=== PATIENT | female | born 1950 | race Hispanic/Latino ===

== ENCOUNTER 2021-06-09 12:36 | Emergency (ER) | payer OTHER ==
--- NOTE | 2021-06-09 13:28 | RAD REPORT ---
EXAM DESCRIPTION: RAD - Chest Single View - 06/09/2021 1:20 pm CLINICAL HISTORY: CHEST PAIN Chest pain. COMPARISON: CHEST PA AND LAT 2 VIEW dated 10/19/2012; CHEST SINGLE VIEW dated 10/19/2011; CHEST SINGLE VIEW dated 10/18/2011; CHEST SINGLE VIEW dated 10/14/2008 FINDINGS: Portable technique limits examination quality. The lungs are grossly clear. The heart is normal in size. No displaced fractures. IMPRESSION: No acute intrathoracic process suspected.
[2021-06-09 14:00] LABS: Absolute Lymphocytes (CBC) 2.3 K/uL (0.7-4.9); Hematocrit 46.8 % (36.0-45.0); Lymphocytes % 30.4 % (15.3-44.8); MPV 8.7 fL (7.6-11.3); RBC Red Blood Cell Count 5.26 M/uL (3.86-4.86)
[2021-06-09 14:12] LABS: Albumin 3.8 g/dL (3.4-5.0); Bilirubin Direct 0.1 mg/dL (0-0.2); Bilirubin Total 0.4 mg/dL (0.2-1.0); Potassium 3.5 mmol/L (3.5-5.1); Protein, Total 7.6 g/dL (6.4-8.2); Troponin High Sensitivity 4.8 pg/mL (<58.9)
[2021-06-09 14:31] LABS: Protime INR 0.93
[2021-06-09] MEDS ORDERED: NA CHLORIDE 0.9% 500 ML ONE (16:01)
--- NOTE | 2021-06-09 18:14 | ER ---
Nurse's Notes [facility] Name: Vesna Montes Age: 71 yrs Sex: Female : 1950 Arrival Date: 06/09/2021 Time: 12:42 Bed 4 Private MD: Diagnosis: Chest pain, unspecified Presentation: 06/09 12:53 Chief complaint: Patient states: My blood pressure and sugar have been up and my left jg9 arm feels weak. Patient seen at [facility] in [place] this morning and advised to come to ED. Coronavirus screen: Vaccine status: Patient reports receiving the 2nd dose of the covid vaccine. Pfizer booster. Ebola Screen: Patient negative for fever greater than or equal to 101.5 degrees Fahrenheit, and additional compatible Ebola Virus Disease symptoms Patient denies exposure to infectious person. Patient denies travel to an Ebola-affected area in the 21 days before illness onset. Initial Sepsis Screen: Does the patient meet any 2 criteria? No. Patient's initial sepsis screen is negative. Does the patient have a suspected source of infection? No. Patient's initial sepsis screen is negative. Risk Assessment: Do you want to hurt yourself or someone else? Patient reports no desire to harm self or others. Onset of symptoms is unknown. 12:53 Method Of Arrival: Ambulatory 9 12:53 Acuity: KEREN 3 jg9 Triage Assessment: 12:55 General: Appears in no apparent distress. Behavior is calm, cooperative. Pain: Denies jg9 pain. 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 - Social history:: Smoking status: Patient denies any tobacco usage or history of. Screenin:56 Abuse screen: Denies threats or abuse. Denies injuries from another. Nutritional jg9 screening: No deficits noted. Tuberculosis screening: No symptoms or risk factors identified. Fall Risk Fall in past 12 months (25 points). Assessment: 13:16 Reassessment: No changes from previously documented assessment. Patient and/or family ll1 updated on plan of care and expected duration. Pain level reassessed. Patient is alert, oriented x 3, equal unlabored respirations, skin warm/dry/pink. 14:09 Reassessment: No changes from previously documented assessment. Patient and/or family ll1 updated on plan of care and expected duration. Pain level reassessed. Patient is alert, oriented x 3, equal unlabored respirations, skin warm/dry/pink. Vital Signs: 12:53 BP 189 / 84; Pulse 81; Resp 18 S; Temp 96.9(TE); Pulse Ox 100% on R/A; Weight 53.98 kg jg9 (R); Height 4 ft. 10 in. (147.32 cm) (R); 13:10 BP 181 / 75; Pulse 73; Resp 17; Pulse Ox 100% on R/A; ll1 13:39 BP 167 / 70; Pulse 73; Resp 16; Temp 97.0; Pulse Ox 100% ; ll1 16:06 BP 145 / 67; Pulse 71; Resp 18; Pulse Ox 100% ; ld1 17:40 BP 177 / 60; Pulse 67; Resp 14; Pulse Ox 100% on R/A; ld1 12:53 Body Mass Index 24.87 (53.98 kg, 147.32 cm) j9 ED Course: 12:42 Patient arrived in ED. mr 12:55 Triage completed. jg9 12:56 Arm band placed on left wrist. jg9 12:57 Bonifacio Dickson NP is PHCP. pm1 12:57 Michelle Bourgeois MD is Attending Physician. pm1 12:57 Audrey Schmitt, LETTY is Primary Nurse. ld1 13:01 Parag Garcia, LETTY is Primary Nurse. ll1 13:01 Patient placed in an exam room, on a stretcher. ll1 13:10 Patient has correct armband on for positive identification. Bed in low position. Call ll1 light in reach. Side rails up X 1. Cardiac monitoring not applicable on this patient. 13:20 XRAY Chest (1 view) In Process Unspecified. EDMS 13:40 Inserted saline lock: 20 gauge in right antecubital area, using aseptic technique. ll1 Blood collected. 18:24 No provider procedures requiring assistance completed. IV discontinued, intact, ld1 bleeding controlled, No redness/swelling at site. Pressure dressing applied. Administered Medications: 16:05 Drug: NS 0.9% 500 ml Route: IV; Rate: bolus; Site: right wrist; ld1 Outcome: 18:13 Discharge ordered by MD. pm1 18:24 Discharged to home ambulatory, with family. ld1 18:24 Condition: stable 18:24 Discharge instructions given to patient, Instructed on discharge instructions, follow up and referral plans. Demonstrated understanding of instructions, follow-up care. 18:27 Patient left the ED. ld1 Signatures: Dispatcher [employer] EDUT [employer] powers RandolphBonifacio NP [employer] pm1 Parag Garcia RN RN ll1 Audrey Schmitt RN RN ld1 Yesica Sanchez RN RN jg9
--- NOTE | 2021-06-09 18:14 | EDPHYS ---
Physician Documentation [facility] Name: Vesna Montes Age: 71 yrs Sex: Female : 1950 Arrival Date: 06/09/2021 Time: 12:42 Bed 4 Private MD: ED Physician Michelle Bourgeois HPI: 06/09 13:09 This 71 yrs old Female presents to ER via Ambulatory with complaints of Chest pm1 pain. 13:09 The patient or guardian reports chest pain that is located primarily in the left pm1 breast. Onset: this morning. The pain radiates to the left arm. Associated signs and symptoms: Pertinent negatives: abdominal pain, cough, dizziness, nausea, palpitations, shortness of breath, vomiting. The chest pain is described as sharp. Duration: The patient or guardian reports a single episode, that is still ongoing. Modifying factors: the symptoms are aggravated by palpation of area. Severity of pain: in the emergency department the pain is unchanged. The patient has been recently seen by a physician: with similar presenting complaints, and was sent to the [facility] Emergency Department for further evaluation, Patient seen at two clinics prior to arrival for her chest pain. 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 - Social history:: Smoking status: Patient denies any tobacco usage or history of. ROS: 13:09 Constitutional: Negative for fever, chills, and weight loss. pm1 13:09 Respiratory: Negative for shortness of breath, cough, wheezing, and pleuritic chest pain, Abdomen/GI: Negative for abdominal pain, nausea, vomiting, diarrhea, and constipation, Back: Negative for injury and pain, MS/Extremity: Negative for injury and deformity, Skin: Negative for injury, rash, and discoloration, Neuro: Negative for headache, weakness, numbness, tingling, and seizure. 13:09 Cardiovascular: Positive for chest pain, Negative for edema, palpitations. 13:09 All other systems are negative. Exam: 13:09 Constitutional: This is a well developed, well nourished patient who is awake, alert, pm1 and in no acute distress. Head/Face: Normocephalic, atraumatic. 13:09 Back: No spinal tenderness. No costovertebral tenderness. Full range of motion. Skin: Warm, dry with normal turgor. Normal color with no rashes, no lesions, and no evidence of cellulitis. MS/ Extremity: Pulses equal, no cyanosis. Neurovascular intact. Full, normal range of motion. 13:09 Chest/axilla: Inspection: normal, no acute changes, Palpation: crepitus, is not appreciated, tenderness, that is moderate, of the focal point medial aspect of left breast, that totally reproduces the patient's complaints. 13:09 Cardiovascular: Exam negative for acute changes, Rate: normal, Rhythm: regular, Pulses: no pulse deficits are appreciated, Heart sounds: normal, normal S1and S2. 13:09 Respiratory: Exam negative for acute changes, respiratory distress, shortness of breath, Breath sounds: are clear throughout. 13:09 Neuro: Exam negative for acute changes, Orientation: is normal, Mentation: is normal, Motor: is normal, moves all fours. Vital Signs: 12:53 BP 189 / 84; Pulse 81; Resp 18 S; Temp 96.9(TE); Pulse Ox 100% on R/A; Weight 53.98 kg jg9 (R); Height 4 ft. 10 in. (147.32 cm) (R); 13:10 BP 181 / 75; Pulse 73; Resp 17; Pulse Ox 100% on R/A; ll1 13:39 BP 167 / 70; Pulse 73; Resp 16; Temp 97.0; Pulse Ox 100% ; ll1 16:06 BP 145 / 67; Pulse 71; Resp 18; Pulse Ox 100% ; ld1 17:40 BP 177 / 60; Pulse 67; Resp 14; Pulse Ox 100% on R/A; ld1 12:53 Body Mass Index 24.87 (53.98 kg, 147.32 cm) j9 MDM: 13:02 Patient medically screened. pm1 15:25 Counseling: I had a detailed discussion with the patient and/or guardian regarding: the pm1 historical points, exam findings, and any diagnostic results supporting the discharge/admit diagnosis, lab results, radiology results, Discussed admission with the patient but she would like to go home. Therefore I recommended that we perform a repeat troponin prior to discharging her. 16:21 Data reviewed: vital signs. pm1 18:35 Refusal of service: The patient/guardian displays adequate decision making capability pm1 and despite a detailed discussion of alternatives, benefits, risks, and consequences refuses: Admission to the hospital for further work-up and treatment, Discussed with patient's son and son on the phone in [place] with mother in the room her refusal to admission, need for follow up, and cardiac work up results. 06/09 13:02 Order name: Basic Metabolic Panel; Complete Time: 14:24 pm1 06/09 13:02 Order name: CBC with Diff; Complete Time: 14:24 pm1 06/09 13:02 Order name: LFT's; Complete Time: 14:24 pm1 06/09 13:02 Order name: Magnesium; Complete Time: 14:24 pm1 06/09 13:02 Order name: NT PRO-BNP; Complete Time: 14:24 pm1 06/09 13:02 Order name: PT-INR; Complete Time: 14:39 pm1 06/09 13:02 Order name: Troponin HS; Complete Time: 14:24 pm1 06/09 13:02 Order name: XRAY Chest (1 view); Complete Time: 14:24 pm1 06/09 13:02 Order name: EKG; Complete Time: 13:03 pm1 06/09 13:02 Order name: Cardiac monitoring; Complete Time: 13:08 pm1 06/09 13:08 Order name: Glucose, Ancillary Testing; Complete Time: 14:24 EDMS 06/09 16:52 Order name: Troponin High Sensitivity pm1 06/09 16:52 Order name: Troponin High Sensitivity; Complete Time: 18:12 EDMS 06/09 13:02 Order name: EKG - Nurse/Tech; Complete Time: 13:08 pm1 06/09 13:02 Order name: IV Saline Lock; Complete Time: 13:09 pm1 06/09 13:02 Order name: Labs collected and sent; Complete Time: 13:09 pm1 06/09 13:02 Order name: O2 Per Protocol; Complete Time: 13:08 pm1 06/09 13:02 Order name: O2 Sat Monitoring; Complete Time: 13:08 pm1 06/09 13:52 Order name: Labs - recollect needed: recollect blue top, please fill to the line; bd Complete Time: 14:41 Administered Medications: 16:05 Drug: NS 0.9% 500 ml Route: IV; Rate: bolus; Site: right wrist; ld1 Disposition Summary: 06/09/21 18:13 Discharge Ordered Location: Home pm1 Problem: new pm1 Symptoms: have improved pm1 Condition: Stable pm1 Diagnosis - Chest pain, unspecified pm1 Followup: pm1 - With: Emergency Department - When: As needed - Reason: Worsening of condition Followup: pm1 - With: Private Physician - When: 2 - 3 days - Reason: Recheck today's complaints, Continuance of care, Re-evaluation by your physician Discharge Instructions: - Discharge Summary Sheet pm1 - Nonspecific Chest Pain, Adult pm1 Forms: - Medication Reconciliation Form pm1 - Thank You Letter pm1 - Antibiotic Education pm1 - Prescription Opioid Use pm1 Signatures: Dispatcher [employer] EDMS Karey Ng Patrick, NP SECURITY CONSULTANT pm1 Audrey Schmitt RN RN ld1 Yesica Sanchez RN RN jg9
[2021-06-09 18:33] VITALS: O2SAT 100
[2021-06-09 18:36] VITALS: TEMP 97
[2021-06-09 18:38] VITALS: BP 177/60
== END 2021-06-09 18:27 | disposition home or self-care (01) ==
LOC: ER 12:36
DX: R07.9 Chest pain, unspecified (principal); I10 Essential (primary) hypertension; E11.9 Type 2 diabetes mellitus without complications
CPT/HCPCS: 93005; 85025; 80048; 36415; 83735; 85610; 82947; 80076; 84484 ×2; 83880; 71045; 99284; J7040